=== PATIENT | female | born 1990 | race Caucasian/White ===

== ENCOUNTER → 2020-08-05 13:07 | Outpatient (CLI) | payer BC, SELFPAY ==
[2020-08-05 13:32] LABS: Basophils # 0.1 K/mm3 (0-0.2); Basophils % 1.4 % (0.1-2.0); Eosinophils # 0.6 K/mm3 (0.0-0.4); Eosinophils % 7.8 % (0.1-12.0); Hematocrit 38.4 % (37.0-47.0); Hemoglobin 11.8 g/dL (12.2-16.2); Lymphocytes # 2.2 K/mm3 (0.7-4.5); Lymphocytes % 30.8 % (10-50); Mean Corpuscular HGB Conc 30.8 g/dL (31.8-35.4); Mean Corpuscular Hemoglobin 28.7 pg (27.0-31.2); Mean Corpuscular Volume 93.3 fl (81-99); Mean Platelet Volume 8.4 fl (7.4-10.4); Monocytes # 0.3 K/mm3 (0.1-1.0); Monocytes % 4.5 % (1.7-9.3); Neutrophils % 55.5 % (37.0-80.0); Platelet Count 293 K/mm3 (142-424); Red Blood Count 4.12 M/mm3 (4.20-5.40); Red Cell Distribution Width 15.5 % (11.5-17.5); White Blood Count 7.2 K/mm3 (4.8-10.8)
[2020-08-05 13:58] LABS: Erythrocyte Sedimentation Rate 22 mm/hr (0-20)
[2020-08-05 14:10] LABS: Alanine Aminotransferase 26 U/L (12-78); Albumin Level 4.9 g/dl (3.5-5.0); Albumin/Globulin Ratio 1.5 (1.1-1.8); Alkaline Phosphatase 56 U/L (38-126); Anion Gap 14.1 mEq/L (5-15); Aspartate Amino Transferase 47 U/L (14-36); Bilirubin,Total 0.5 mg/dl (0.2-1.3); Blood Urea Nitrogen 11 mg/dl (7-17); Calcium 9.7 mg/dl (8.4-10.2); Carbon Dioxide 26 mmol/L (22.0-30.0); Chloride 103 mmol/L (98-107); Estimated Glomerular Filt Rate 52 ml/min (>60); GFR (African American) 63 ML/MIN (>60); Globulin 3.2 g/dL (1.3-3.2); Glucose 97 mg/dl (74-100); Potassium 4.1 mmoL/L (3.5-5.1); Sodium 139 mmol/L (136-145); Total Protein,Serum 8.1 g/dl (6.3-8.2)
[2020-08-05 14:20] LABS: Free T4 (Free Thyroxine) 0.07 ng/dl (0.78-2.19)
[2020-08-05 14:26] LABS: 25-OH Vitamin D, Total 19.4 ng/mL (30-100)
[2020-08-05 14:58] LABS: Vitamin B12 355 pg/mL (239-931)
== END ==
PROVIDERS: Visit Provider Nurse Practitioner Family
DX: E03.9 Hypothyroidism, unspecified (principal); R51.9 Headache, unspecified; M79.10 Myalgia, unspecified site
CPT/HCPCS: 36415; 80053; 82306; 82607; 84439; 84443; 85025; 85651

== ENCOUNTER → 2021-03-13 17:15 | Outpatient (CLI) | payer BC, SELFPAY ==
[2021-03-13 18:00] LABS: Basophils # 0.1 K/mm3 (0-0.2); Basophils % 1.3 % (0.1-2.0); Eosinophils # 0.6 K/mm3 (0.0-0.4); Eosinophils % 7.7 % (0.1-12.0); Hematocrit 37.2 % (37.0-47.0); Hemoglobin 11.8 g/dL (12.2-16.2); Lymphocytes # 2.3 K/mm3 (0.7-4.5); Lymphocytes % 30.6 % (10-50); Mean Corpuscular HGB Conc 31.8 g/dL (31.8-35.4); Mean Corpuscular Hemoglobin 28.5 pg (27.0-31.2); Mean Corpuscular Volume 89.5 fl (81-99); Monocytes # 0.4 K/mm3 (0.1-1.0); Monocytes % 5.2 % (1.7-9.3); Neutrophils # 4.1 K/mm3 (1.8-7.8); Neutrophils % 55.2 % (37.0-80.0); Platelet Count 302 K/mm3 (142-424); Red Blood Count 4.16 M/mm3 (4.20-5.40); Red Cell Distribution Width 15.6 % (11.5-17.5); White Blood Count 7.4 K/mm3 (4.8-10.8)
[2021-03-13 18:36] LABS: Alanine Aminotransferase 18 U/L (12-78); Albumin Level 5.1 g/dl (3.5-5.0); Albumin/Globulin Ratio 1.6 (1.1-1.8); Alkaline Phosphatase 50 U/L (38-126); Amylase 43 U/L (30-110); Anion Gap 16.5 mEq/L (5-15); Aspartate Amino Transferase 37 U/L (14-36); Bilirubin,Total 0.6 mg/dl (0.2-1.3); Blood Urea Nitrogen 6 mg/dl (7-17); Calcium 9.6 mg/dl (8.4-10.2); Carbon Dioxide 25 mmol/L (22.0-30.0); Chloride 103 mmol/L (98-107); Estimated Glomerular Filt Rate 64 ml/min (>60); GFR (African American) 78 ML/MIN (>60); Globulin 3.1 g/dL (1.3-3.2); Glucose 104 mg/dl (74-100); Lipase 71 U/L (23-300); Magnesium 1.9 mg/dl (1.6-2.3); Potassium 3.5 mmoL/L (3.5-5.1); Sodium 141 mmol/L (136-145); Total Protein,Serum 8.2 g/dl (6.3-8.2)
[2021-03-13 18:53] LABS: Free Thyroxine Index 0.2 ug/dL (5.93-13.13); T4 (Thyroxine) 1.1 ug/dl (5.53-11.0); Triiodothryronine (T3) Uptake 20 % (23.5-40.5)
[2021-03-15 12:11] LABS: Hep A Ab, IgM Negative (Negative); Hepatitis B Core Antibody IgM Negative (Negative); Hepatitis B Surface Antigen Negative (Negative); Hepatitis C Antibody <0.1 s/co ratio (0.0-0.9)
[2021-03-15 15:33] LABS: Deamidated Gliadin Abs, IgA 10 units (0-19); Deamidated Gliadin Abs, IgG 9 units (0-19)
== END ==
PROVIDERS: Visit Provider Internal Medicine Adolescent Medicine
DX: R10.84 Generalized abdominal pain (principal); E03.9 Hypothyroidism, unspecified
CPT/HCPCS: 36415; 80053; 80074; 82150; 83516; 83690; 83735; 84436; 84443; 84479; 85025

== ENCOUNTER → 2021-05-24 12:36 | Outpatient (CLI) | payer BC, SELFPAY | PROVIDERS: Visit Provider Surgery | DX: Z01.812 Encounter for preprocedural laboratory examination (principal); Z11.52 Encounter for screening for COVID-19; Z13.810 Encounter for screening for upper gastrointestinal disorder | CPT/HCPCS: C9803; U0003; U0005 ==

== ENCOUNTER 2021-05-25 06:50 | Day surgery (SDC) | payer BC, SELFPAY ==
[2021-05-25 07:10] VITALS: BMI 34.4
[2021-05-25 07:22] LABS: Urine Pregnancy, HCG Qual. Negative (Negative)
[2021-05-25 07:23] VITALS: BP 111/84; PULSE 64; RESP 18; TEMP 36.7; O2SAT 98
[2021-05-25 07:47] VITALS: O2SAT 97
[2021-05-25 08:12] VITALS: BP 96/59; PULSE 74; RESP 18; TEMP 36.3; O2SAT 95
--- NOTE | 2021-05-25 08:12 | P.PCN_ITS ---
- Procedure: Date: 05/25/21 Patient Date of :: 1990 Procedure Performed:: Esophagogastroduodenoscopy with biopsy Indications:: Nausea/vomiting; dysphagia Performing Provider:: Dameon Deng MD Referring Provider:: Dr. Gomes Sedation:: Monitored anesthesia care Procedure:: After informed consent was obtained the patient was taken to the endoscopy suite. Sedation ensued after the patient was transferred to the left lateral decubitus position. Pulse, blood pressure, and oxygen saturation were monitored throughout the procedure. The endoscope was advanced beyond the duodenal bulb. Retroflexion within the gastric lumen was accomplished. The gastroscope was carefully removed and the patient was transferred to recovery in stable conditi on. Please see findings and specimens below for detail. Findings:: Mild to moderate spasticity of the esophagus No significant anatomic stricture Scattered distal esophageal/gastroesophageal junction polyps Specimens:: Antral biopsy Distal esophageal/gastroesophageal junction polyps Recommendations:: Follow-up pathology Likely barium swallow and possible UGI/SBFT in near future Consider gastric emptying scan Complications:: No immediate Estimated blood obtained (mL): 1
--- NOTE | 2021-05-25 08:14 | HMH.ANESCL ---
[facility] Anesthesia Checklist - Patient Identification Patient Identification: Arm Band - Structural Data Admitted From: Home Planned Operative Procedure/s: egd Consent for Planned Operative Procedure(s) Verified: Yes Verified Documents: Surgical Consent, History and Physical - NPO Status Verified Time NPO: 00:00 - Additional verifications Anesthesia Reactions: No - Airway Assessment C-Spine Mobility Assessed: Yes (mp2) TMJ Mobility Assessed: Yes Dentition: Good Dentition - Neurological Assessment Level of Consciousness: Awake, Alert - Anesthesia Plan Anesthesia Risk discussed: Yes Anesthesia Plan: Verified ASA Class: II Anesthesia Type: MAC [facility] History I have reviewed the patient's past medical history: Yes 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: Reports:: Cancer Denies:: Diabetes Mellitus Type 1, Diabetes Mellitus Type 2, MRSA, Seizures *Have you ever received a pneumonia vaccine?: No *Have you received a flu vaccine this season?: No Anesthesia experience/problems:: nac Amputation: No Fractures: No - *Social History Last grade of school completed: Some college Smoking Status: Never smoker Alcohol Intake: never Substance Use Type: denies use *Occupational Status:: unemployed Housing: house Household Members: spouse, children *Travel in the last 8 weeks: None Family Hx:: Cancer, Coronary Artery Disease, Hyperlipidemia, Hypertension
[2021-05-25 08:22] VITALS: BP 103/66; PULSE 68; RESP 18; TEMP 36.3; O2SAT 99
[2021-05-25 08:32] VITALS: BP 119/79; PULSE 58; RESP 18; TEMP 36.3; O2SAT 96
[2021-05-25 08:42] VITALS: BP 120/83; PULSE 53; RESP 18; TEMP 36.3; O2SAT 99
== END 2021-05-25 08:42 | disposition home or self-care (01) ==
LOC: OUTP 06:53
PROVIDERS: PCP Internal Medicine Adolescent Medicine; Visit Provider Surgery
PROC: 0DJ08ZZ Inspection of Upper Intestinal Tract, Via Natural or Artificial Opening Endoscopic (ICD-10-PCS; CPT 43235; principal; 2021-05-25 08:00)
DX: D13.0 Benign neoplasm of esophagus (principal); Z88.0 Allergy status to penicillin; Z88.8 Allergy status to other drugs, medicaments and biological substances; E07.9 Disorder of thyroid, unspecified; Z85.9 Personal history of malignant neoplasm, unspecified; Z80.9 Family history of malignant neoplasm, unspecified; Z82.49 Family history of ischemic heart disease and other diseases of the circulatory system; Z83.438 Family history of other disorder of lipoprotein metabolism and other lipidemia
CPT/HCPCS: 43239; 81025

== ENCOUNTER → 2021-05-30 11:09 | Outpatient (CLI) | payer BC, SELFPAY ==
[2021-05-30 11:12] LABS: MANUAL DIFFERENTIAL MANUAL DIFFERENTIAL (MANUAL DIFF)
[2021-05-30 11:40] LABS: Basophils # 0.1 K/mm3 (0-0.2); Eosinophils # 0.7 K/mm3 (0.0-0.4); Eosinophils % 8.2 % (0.1-12.0); Hematocrit 40.2 % (37.0-47.0); Hemoglobin 12.8 g/dL (12.2-16.2); Lymphocytes # 2.1 K/mm3 (0.7-4.5); Lymphocytes % 23.3 % (10-50); Mean Corpuscular HGB Conc 31.8 g/dL (31.8-35.4); Mean Corpuscular Hemoglobin 29.6 pg (27.0-31.2); Mean Corpuscular Volume 92.9 fl (81-99); Mean Platelet Volume 9.5 fl (7.4-10.4); Monocytes # 0.5 K/mm3 (0.1-1.0); Monocytes % 5.5 % (1.7-9.3); Neutrophils # 5.6 K/mm3 (1.8-7.8); Neutrophils % 62.1 % (37.0-80.0); Platelet Count 342 K/mm3 (142-424); Red Blood Count 4.33 M/mm3 (4.20-5.40); Red Cell Distribution Width 15.1 % (11.5-17.5)
[2021-05-30 14:09] LABS: Eosinophils % 9 % (0-3); Lymphocytes % 23 % (10-50); Monocytes % 6 % (2-9); Neutrophils % 62 % (42-76); Platelet Estimate Normal; RBC Morphology Normal; Total Cells Counted 100
== END ==
PROVIDERS: Visit Provider Surgery
DX: R11.10 Vomiting, unspecified (principal); R19.7 Diarrhea, unspecified
CPT/HCPCS: 36415; 85007; 85014; 85018; 85048; 85049

== ENCOUNTER → 2021-06-05 10:06 | Outpatient (CLI) | payer BC, SELFPAY ==
--- NOTE | 2021-06-05 10:09 | NM_ITS ---
PROCEDURE: NM GASTRIC EMPTYING STUDY CLINICAL INDICATION: vomitting COMPARISON: No exams were available for comparison FINDINGS: Dose: 0.51 mCi technetium sulfur colloid mixed in 2 aches, 2 toast and water. The 1/2 emptying time is 78 minutes which is within normal limits. Only 10 percent of the gastric contents was retained at 240 minutes. Images submitted show no evidence of gastroesophageal reflux. IMPRESSION: Normal gastric emptying Dictated by: Papa Watson MD 06/05/2021 16:34 Papa Watson MD in [place] 06/05/2021 16:34
== END ==
PROVIDERS: PCP Internal Medicine Adolescent Medicine; Visit Provider Surgery
DX: R11.10 Vomiting, unspecified (principal)
CPT/HCPCS: 78264; A9541

== ENCOUNTER → 2021-06-07 09:54 | Outpatient (CLI) | payer BC, SELFPAY ==
--- NOTE | 2021-06-07 09:54 | FL_ITS ---
PROCEDURE: FL UPPER GI SMALL BOWEL CLINICAL INDICATION: vomitting COMPARISON: No exams were available for comparison FINDINGS: Fluoroscopy time: 2.39 minutes. Stereo Equipment Installer exam demonstrates surgical clips in the right upper quadrant. There is some sclerosis of the right SI joint. There is a small hiatal hernia within non constricting Schatzki's ring. The esophagus, stomach, and duodenal bulb have an unremarkable appearance. No ulcer or mass is evident. The small bowel has an unremarkable appearance. No mass, mucosal abnormalities, or obstructing lesions are evident. Spot views of the terminal ileum are unremarkable. IMPRESSION: Small sliding hiatal hernia otherwise negative upper GI with small-bowel follow-through Mild sclerosis right SI joint Dictated by: Papa Watson MD 06/13/2021 10:31 Papa Watson MD in [place] 06/13/2021 10:31
== END ==
PROVIDERS: PCP Internal Medicine Adolescent Medicine; Visit Provider Surgery
DX: R11.10 Vomiting, unspecified (principal)
CPT/HCPCS: 74246; 74248

== ENCOUNTER → 2021-07-04 15:04 | Outpatient (CLI) | payer BC, SELFPAY | PROVIDERS: PCP Internal Medicine Adolescent Medicine; Visit Provider Nurse Practitioner | DX: U07.1 COVID-19 (principal) | CPT/HCPCS: C9803; U0003; U0005 ==

== ENCOUNTER 2022-07-18 18:06 | Emergency (ER) | payer OTHER, SELFPAY ==
[2022-07-18 19:55] VITALS: BP 138/89; PULSE 91; RESP 21; TEMP 36.9; O2SAT 100; BMI 31.1
--- NOTE | 2022-07-18 20:12 | EXP.UTC ---
Discharge Plan Disposition Patient Disposition: Home, Self-Care Condition: Good Prescriptions Prescriptions: New oseltamivir [Tamiflu] 75 mg capsule 75 mg PO BID 5 Days Qty: 10 0RF benzonatate 100 mg capsule 100 mg PO TID PRN (Reason: cough) Qty: 30 0RF ondansetron 4 mg tablet,disintegrating 4 mg PO Q8H PRN (Reason: nausea and vomiting) Qty: 10 0RF No Action levothyroxine 125 mcg tablet 125 mcg PO Referrals Follow up/Referrals: Jordon Gomes MD [Primary Care Provider] - See instructions Activity Restrictions/Add. Instructions Additional Instructions/Restrictions: Start Tamiflu today if you are going to take it. Discussed risk and possible benefits. if you can get it if not Over the counter Cold and flu medications may help with symptoms Lots of rest Increase Fluids water, Gatorade, powerade, pedialyte,if infant/toddler/child Alternate Tylenol and / or ibuprofen as discussed for fever, aches, chills Follow up IMMEDIATELY with your family doctor for new or worsening Symptoms OR no noticeable improvement over the next 48-72 hours, 911 for difficulty or breathing You or your child area contagious until no fever, aches, chills for 24 hours with medication for symptoms Help Prevent the spread of influenza: ?Wash your hands often. Use soap and water. Wash your hands after you use the bathroom, change a child's diapers, or sneeze. Wash your hands before you prepare or eat food. Use gel hand cleanser that has 60% alcohol, when soap and water are not available. Do not touch your eyes, nose, or mouth unless you have washed your hands first. Cover your mouth when you sneeze or cough. Cough into a tissue or the bend of your arm. If you use a tissue, throw it away immediately and wash your hands. Clean shared items with a germ-killing flue cleaner. Clean table surfaces, doorknobs, and light switches. Do not share towels, silverware, and dishes with people who are sick. Wash bed sheets, towels, silverware, and dishes with soap and water. Wear a mask over your mouth and nose if you are sick. The face mask may help protect others from becoming infected with the flu. Wear the mask when in common areas of your home or if you seek care with a healthcare provider. Stay away from others if you are sick. Stay at home until 24 hours after your fever and symptoms are gone. Clinical Impressions Clinical Impression: Influenza A Stand Alone Forms Stand Alone Forms: Work/School Release Instructions Patient Instructions: DI for Influenza -- Adult, Influenza Discharge ED Provider: Josselin Gardner [facility] General Stated complaint: fever,cough,body aches Mode of Arrival: Ambulatory Source of Information: Patient Limitations: No Limitations Time Seen by Provider: 07/18/22 20:12 Description of Symptoms (Recalled from Triage Doc. by RN): PATIENT C/O COUGH, FEVER, BODY ACHES, CHILLS AND VOMITING X 2 DAYS HEENT Symptoms (Recalled from RN notes): No Resp Symptoms (Recalled from RN notes): Yes Skin Symptoms (Recalled from RN notes): No MS Symptoms (Recalled from RN notes): No Functional Status (Recalled from RN notes): WNL History of Present Illness Provider Complaint: Patient states that she was around someone over the weekend with the flu States that for the last couple of days she has been having low grade fever, chills, body aches cough and N/V States that her kids area having similar symptoms so they came in to get checked Related Data Home Medications Medication Instructions Recorded Confirmed levothyroxine 125 mcg tablet 125 mcg PO 06/14/21 06/14/21 Previous Rx's Medication Instructions Recorded benzonatate 100 mg capsule 100 mg PO TID PRN cough #30 caps 07/18/22 ondansetron 4 mg disintegrating 4 mg PO Q8H PRN nausea and 07/18/22 tablet vomiting #1
[2022-07-18 20:21] VITALS: BP 138/89; PULSE 91; RESP 21; TEMP 36.9; O2SAT 100
[2022-07-18 20:28] LABS: UTC Influenza A Antigen Positive (Negative); UTC Influenza B Antigen Negative (Negative)
== END 2022-07-18 20:48 | disposition home or self-care (01) ==
PROVIDERS: Emergency Provider Nurse Practitioner; PCP Internal Medicine Adolescent Medicine
DX: J10.1 Influenza due to other identified influenza virus with other respiratory manifestations (principal)
CPT/HCPCS: 87804; 99212; G0463

== ENCOUNTER 2023-04-01 11:33 | Emergency (ER) | payer OTHER, SELFPAY ==
[2023-04-01 11:40] VITALS: BP 160/94; PULSE 67; RESP 20; TEMP 36.6; O2SAT 97; BMI 29.3
--- NOTE | 2023-04-01 12:01 | EXP.UTC ---
Discharge Plan Disposition Patient Disposition: Still a Patient Condition: Good Prescriptions Prescriptions: New doxycycline hyclate 100 mg capsule 100 mg PO BID 7 Days Qty: 14 0RF mupirocin 2 % ointment 1 applic topical TID 10 Days Qty: 22 0RF Rx Instructions: apply to bites as prescribed No Action levothyroxine 175 mcg tablet 175 mcg PO DAILY metoclopramide HCl 5 mg tablet 5 mg PO DAILY Patient Comments: TAKE 1 TABLET BY MOUTH FOUR TIMES A DAY (BEFORE MEALS AND AT BEDTIME) pantoprazole 40 mg tablet,delayed release (DR/EC) 40 mg PO DAILY dicyclomine 10 mg capsule 10 mg PO DAILY Referrals Follow up/Referrals: Jordon Gomes MD [Primary Care Provider] - See instructions Activity Restrictions/Add. Instructions Additional Instructions/Restrictions: Make sure to seperate dose of Doxycyclin with your Pantoprazole by a couple hours Use topical medicaiton as prescribed Follow up with your Family Doctor if no improvement or any worsening of symptoms Over the counter Motrin may help with discomfort Clinical Impressions Clinical Impression: Skin problem Instructions Patient Instructions: Doxycycline, Mupirocin Discharge ED Provider: Josselin Gardner [facility] General Stated complaint: left leg spider bites Mode of Arrival: Ambulatory Source of Information: Patient Limitations: No Limitations Time Seen by Provider: 04/01/23 12:01 Description of Symptoms (Recalled from Triage Doc. by RN): PATIENT C/O POSSIBLE SPIDER BITES TO LEFT LEG THAT HAPPENED ON SATURDAY. SHE STATES THE BITES BURN AND ITCHY. SHE ALSO REPORTS WEAKNESS AND BODY ACHES HEENT Symptoms (Recalled from RN notes): No Resp Symptoms (Recalled from RN notes): No Skin Symptoms (Recalled from RN notes): Yes MS Symptoms (Recalled from RN notes): No Functional Status (Recalled from RN notes): WNL History of Present Illness Provider Complaint: Patient states that she was bitten several times by spiders on Saturday and has several red, sore itchy areas on her left leg States that she is not sure if it is associated with anything but she has also had body aches and chills today States that areas are sore and itchy at times and hurts when she touches them and today they was looking red Related Data Home Medications Medication Instructions Recorded Confirmed dicyclomine 10 mg capsule 10 mg PO DAILY GASTROPARESIS 04/01/23 04/01/23 levothyroxine 175 mcg tablet 175 mcg PO DAILY Supplement 04/01/23 04/01/23 metoclopramide HCl 5 mg tablet 5 mg PO DAILY GASTROPARESIS 04/01/23 04/01/23 pantoprazole 40 mg tablet,delayed 40 mg PO DAILY GASTROPARESIS 04/01/23 04/01/23 release Previous Rx's Medication Instructions Recorded doxycycline hyclate 100 mg capsule 100 mg PO BID 7 days #14 caps 04/01/23 mupirocin 2 % topical ointment 1 applic topical TID 10 days #22 04/01/23 grams Allergies Allergy/AdvReac Type Severity Reaction Status Date / Time cortisone [CORTISONE] Allergy Mild Verified 06/14/21 10:04 Penicillins [PENICILLINS] Allergy Mild Verified 06/14/21 10:04 Worker's Comp Is this a Worker's Comp case?: No [facility] Disclaimer: The information contained in this section may have been updated after the patient was seen, as this information can be updated by other users. 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 (Updated 04/01/23 @ 12:13 by Josselin Gardner APRN) Thyroid disease Social History (Updated 07/18/22 @ 20:07 by Alix Fuentes RN) Smoking Status: Never smoker alcohol intake: never substance use type: denies use current occupational status: unemployed Travel in the last 8 weeks: None household members: spouse and children housing: house current occupational exposures/hazards: No ROS Obtained: Yes All systems reviewed & no additional complaints except as documented and Yes Systems reviewed as appropriate & no additional complaints except as documented Constitutional Constitutional: Reports sy
[2023-04-01 12:16] VITALS: BP 160/94; PULSE 67; RESP 20; TEMP 36.6; O2SAT 97
== END 2023-04-01 12:18 | disposition still patient (30) ==
PROVIDERS: Emergency Provider Nurse Practitioner; PCP Internal Medicine Adolescent Medicine
DX: T63.301A Toxic effect of unspecified spider venom, accidental (unintentional), initial encounter (principal); L98.9 Disorder of the skin and subcutaneous tissue, unspecified
CPT/HCPCS: 99212; 99214; G0463

== ENCOUNTER 2023-09-10 10:31 | Emergency (ER) | payer OTHER, SELFPAY ==
[2023-09-10 10:40] VITALS: BP 136/91; PULSE 78; RESP 18; TEMP 36.7; O2SAT 97; BMI 34.0
--- NOTE | 2023-09-10 10:47 | EXP.UTC ---
Discharge Plan Disposition Patient Disposition: Home, Self-Care Condition: Good Prescriptions Prescriptions: New azithromycin [Zithromax] 250 mg tablet 250 mg PO UD DOSE PK Qty: 6 0RF Rx Instructions: Take two (2) tablets today, then one (1) tablet days #2 thru #5 benzonatate [benzonatate] 100 mg capsule 100 mg PO TIDP PRN (Reason: Cough) Qty: 30 0RF No Action levothyroxine 175 mcg tablet 175 mcg PO DAILY metoclopramide HCl 5 mg tablet 5 mg PO DAILY Patient Comments: TAKE 1 TABLET BY MOUTH FOUR TIMES A DAY (BEFORE MEALS AND AT BEDTIME) pantoprazole 40 mg tablet,delayed release (DR/EC) 40 mg PO DAILY Referrals Follow up/Referrals: Jordon Gomes MD [Primary Care Provider] - See instructions Activity Restrictions/Add. Instructions Additional Instructions/Restrictions: Drink plenty of fluids. Take tylenol or ibuprofen for pain or fever. Take the medications as directed. Follow up with your regular doctor. GO TO THE ER FOR ANY WORSENING SYMPTOMS Clinical Impressions Clinical Impression: Acute bronchitis, Acute viral syndrome Instructions Patient Instructions: DI for Acute Bronchitis Discharge ED Provider: Rainer Shelton [facility] General Stated complaint: cough, sore throat Time Seen by Provider: 09/10/23 10:47 History of Present Illness Provider Complaint: She states that for the past 2 days she has had sore throat and a croupy productive cough. Related Data Home Medications Medication Instructions Recorded Confirmed levothyroxine 175 mcg tablet 175 mcg PO DAILY Supplement 04/01/23 09/10/23 metoclopramide HCl 5 mg tablet 5 mg PO DAILY GASTROPARESIS 04/01/23 09/10/23 pantoprazole 40 mg tablet,delayed 40 mg PO DAILY GASTROPARESIS 04/01/23 09/10/23 release Previous Rx's Medication Instructions Recorded azithromycin 250 mg tablet 250 mg PO UD DOSE PK #6 tabs 09/10/23 (Zithromax) benzonatate 100 mg capsule 100 mg PO TIDP PRN Cough #30 caps 09/10/23 Allergies Allergy/AdvReac Type Severity Reaction Status Date / Time cortisone [CORTISONE] Allergy Mild Verified 09/10/23 10:53 Penicillins [PENICILLINS] Allergy Mild Verified 09/10/23 10:53 [facility] Disclaimer: The information contained in this section may have been updated after the patient was seen, as this information can be updated by other users. 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 (Updated 09/10/23 @ 11:07 by Rainer Shelton APRN) Thyroid disease Social History Smoking Status: Never smoker alcohol intake: never substance use type: denies use current occupational status: unemployed Travel in the last 8 weeks: None household members: spouse and children housing: house current occupational exposures/hazards: No ROS Obtained: Yes All systems reviewed & no additional complaints except as documented Constitutional Constitutional: Reports poor appetite Eyes Eyes: Reports system reviewed and no additional complaints, except as documented ENT Ears, Nose, Mouth, and Throat: Reports as per HPI Cardiovascular Cardiovascular: Reports system reviewed and no additional complaints, except as documented and Denies chest pain Respiratory Respiratory: Denies shortness of breath, Reports chest congestion, Reports cough, Denies stridor and Denies wheezing Gastrointestinal Gastrointestingal: Reports system reviewed and no additional complaints, except as documented; Denies abdominal pain, diarrhea or vomiting Musculoskeletal Musculoskeletal: Reports system reviewed and no additional complaints, except as documented and Denies arthralgias Integumentary/Breasts Skin/Breast: Reports system reviewed and no additional complaints, except as documented, Denies rash and Denies wounds Neurologic Neurologic: Denies paresthesias Allergic/Immunologic Allergic/Immunologic: Denies wheezing Physical Exam General General appearance: alert and in no apparent distress Eye Eye exam: Present normal appearance, PERRL and EOMI ENT ENT exam: Present mucous membranes moist and normal external ear exam Expanded ENT Exam External ear exam: Present normal external inspection TM/Canal exam: Bilateral TM: erythema and bulging Nose exam: Absent sinus tenderness Nasal speculum exam: Bilateral: normal Mouth exam: Present normal external inspection; Absent drooling Teeth exam: Present normal inspection Throat exam: Present tonsillar erythema and tonsillomegaly Neck Neck exam: Present normal inspection, full ROM and trachea midline; Absent tenderness, lymphadenopathy or thyromegaly Chest Chest inspection: Present normal inspection and symmetric chest wall rise; Absent tenderness or rash Respiratory Respiratory exam: Present normal lung sounds bilaterally; Absent respiratory distress, wheezes, stridor or accessory muscle use Cardiovascular Cardiovascular exam: Present regular rate, normal rhythm and normal heart sounds Abdominal Exam Abdominal exam: Present soft; Absent distention, tenderness, guarding, rebound or rigidity Extremities Exam Extremities exam: Present normal inspection, full ROM and normal capillary refill; Absent tenderness or calf tenderness Back Exam Back exam: Present normal inspection and full ROM; Absent tenderness Neurological Exam Neurological exam: Present alert and oriented X3 Psychiatric Psychiatric exam: Present normal affect and normal mood Skin Skin exam: Present warm, dry, intact and normal color Lymphatic Lymphatic Findings: no adenopathy Medical Decision Making Medical Records Medical records reviewed: No I reviewed the patient's medical records. Jeremiah Inquiry Pt receiving controlled substance: No
[2023-09-10 11:11] VITALS: BP 136/91; PULSE 78; RESP 18; TEMP 36.7; O2SAT 97
== END 2023-09-10 11:11 | disposition home or self-care (01) ==
PROVIDERS: Emergency Provider Nurse Practitioner Family; PCP Internal Medicine Adolescent Medicine
DX: J20.9 Acute bronchitis, unspecified (principal); R05.8 Other specified cough; R07.0 Pain in throat; R09.89 Other specified symptoms and signs involving the circulatory and respiratory systems; E03.9 Hypothyroidism, unspecified
CPT/HCPCS: 99212; 99214; G0463

== ENCOUNTER 2024-07-26 09:45 | Emergency (ER) | payer OTHER, SELFPAY ==
[2024-07-26 10:55] VITALS: BP 131/91; PULSE 101; RESP 21; TEMP 36.9; O2SAT 98; BMI 38.5
[2024-07-26 11:09] LABS: UTC Strep Screen (Rapid) Negative (Negative)
[2024-07-26 11:10] LABS: UTC Influenza A Antigen Negative (Negative); UTC Influenza B Antigen Negative (Negative)
--- NOTE | 2024-07-26 11:14 | EXP.UTC ---
Discharge Plan Disposition Patient Disposition: Home, Self-Care Condition: Good Prescriptions Prescriptions: New azithromycin 250 mg tablet 250 mg PO DIRECTED Qty: 6 0RF Rx Instructions: Take two (2) tablets on day #1, then one (1) tablet day #2 thru #5 No Action levothyroxine 175 mcg tablet 175 mcg PO DAILY pantoprazole 40 mg tablet,delayed release (DR/EC) 40 mg PO DAILY Referrals Follow up/Referrals: Jordon Gomes MD [Primary Care Provider] - See instructions Activity Restrictions/Add. Instructions Additional Instructions/Restrictions: Start antibiotics today be sure to take it as ordered with the full length of time although you should start feeling better in 24-48 hours. Change toothbrush and toothpaste 24-48 hours after starting antibiotics Tylenol or Motrin as needed for fever or pain Encourage fluids, water, Gatorade, Powerade, try cold fluids, popsicles, ice cream will make it feel better You are contagious for 24 hours. Avoid kissing anyone, no eating or drinking after anyone. You are contagious. Follow-up the ER for new or worsening symptoms or no noticeable improvement over the next 24-48 hours. Follow-up with PCP this week. Clinical Impressions Clinical Impression: Strep throat Instructions Patient Instructions: DI for Strep Throat Print Language Print Language: Liberian Discharge ED Provider: Vasu ([facility])Bethany [facility] HPI General Stated complaint: sore throat, fever, chills Mode of Arrival: Ambulatory Source of Information: Patient Limitations: No Limitations Time Seen by Provider: 07/26/24 11:04 Description of Symptoms (Recalled from Triage Doc. by RN): PATIENT C/O SORE THROAT, DRAINAGE, FEVER, BODY ACHES AND CHILLS X 3 DAYS HEENT Symptoms (Recalled from RN notes): Yes Resp Symptoms (Recalled from RN notes): No Skin Symptoms (Recalled from RN notes): No MS Symptoms (Recalled from RN notes): No Functional Status (Recalled from RN notes): WNL History of Present Illness Provider Complaint: 34-year-old female presents for complaints of sore throat, drainage, fever, body aches and chills for 3 days. Related Data Home Medications ?Medication ?Instructions ?Recorded ?Confirmed levothyroxine 175 mcg tablet 175 mcg PO DAILY Supplement 04/01/23 07/26/24 pantoprazole 40 mg tablet,delayed 40 mg PO DAILY GASTROPARESIS 04/01/23 07/26/24 release Previous Rx's ?Medication ?Instructions ?Recorded azithromycin 250 mg tablet 250 mg PO DIRECTED #6 tabs 07/26/24 Allergies Allergy/AdvReac Type Severity Reaction Status Date / Time cortisone (CORTISONE) Allergy Mild Unknown Verified 07/26/24 11:11 allergy reaction Penicillins (PENICILLINS) Allergy Mild Unknown Verified 07/26/24 11:11 allergy reaction ibuprofen (From Advil) Allergy Unknown Verified 07/26/24 11:11 allergy reaction Worker's Comp Is this a Worker's Comp case?: No [facility] Disclaimer: The information contained in this section may have been updated after the patient was seen, as this information can be updated by other users. 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 , [employer]) Thyroid disease Social History , [employer] AG[employer]) Smoking Status: Never smoker alcohol intake: never substance use type: denies use current occupational status: unemployed Travel in the last 8 weeks: None household members: spouse and children housing: house current occupational exposures/hazards: No ROS Obtained: Yes Systems reviewed as appropriate & no additional complaints except as documented Physical Exam General General appearance: alert and in no apparent distress Eye Eye exam: Present normal appearance ENT ENT exam: Present mucous membranes moist and TM's normal bilaterally Expanded ENT Exam Throat exam: Present tonsillar erythema, tonsillomegaly and tonsillar exudate Respiratory Respiratory exam: Present normal lung sounds bilaterally Cardiovascular Cardiovascular exam: Present regular rate and normal rhythm Neurological Exam Neurological exam: Present alert and oriented X3 Psychiatric Psychiatric exam: Present normal affect Skin Skin exam: Present warm and intact Lymphatic Lymphatic Findings: no adenopathy Medical Decision Making Medical Records Medical records reviewed: Yes I reviewed the patient's medical records. Screening: Per USPSTF and CDC recommendations, given the prevalence of disease in our region, it is our hospital?s policy to screen for HIV and viral Hepatitis for all patients aged 18 and over and those with ongoing risk factors. Jeremiah Inquiry Pt receiving controlled substance: No Vital Signs: 07/26/24 10:55 Temperature 98.5 F Temperature Source Oral Pulse Rate [Left Brachial] 101 H Respiratory Rate 21 Blood Pressure [Left Arm] 131/91 H Blood Pressure Mean [Left Arm] 104 Blood Pressure Source [Left Arm] Automatic Cuff Blood Pressure Position [Left Arm] Sitting 02 Sat by Pulse Oximetry 98 Oxygen Delivery Method Room Air Lab Data Lab results reviewed: Yes I reviewed the patient's lab results. Lab Results 07/26/24 10:55: Influenza Type A Ag Negative, Influenza Type B Ag Negative, Strep Scn Rapid Clinic Negative Orders (Tests/Meds): ORDERS Category Date Time Status Strep Screen Confirmation Stat Micro 07/26/24 10:55 Received
[2024-07-26 11:18] VITALS: BP 131/91; PULSE 101; RESP 21; TEMP 36.9; O2SAT 98
== END 2024-07-26 11:21 | disposition home or self-care (01) ==
PROVIDERS: Emergency Provider Nurse Practitioner Family; PCP Internal Medicine Adolescent Medicine
DX: J02.0 Streptococcal pharyngitis (principal)
CPT/HCPCS: 87804; 87880; 99213; G0381

== ENCOUNTER 2024-10-22 04:07 | Emergency (ER) | payer OTHER, SELFPAY ==
--- NOTE | 2024-10-22 04:11 | HMH.EDGENADL ---
Discharge Plan Disposition Patient Disposition: Home, Self-Care Prescriptions Prescriptions: New methocarbamol 500 mg tablet 500 mg PO Q6H PRN (Reason: pain) Qty: 30 0RF No Action levothyroxine 175 mcg tablet 175 mcg PO DAILY pantoprazole 40 mg tablet,delayed release (DR/EC) 40 mg PO DAILY azithromycin 250 mg tablet 250 mg PO DIRECTED Qty: 6 0RF Rx Instructions: Take two (2) tablets on day #1, then one (1) tablet day #2 thru #5 Referrals Follow up/Referrals: Jordon Gomes MD [Primary Care Provider] - See instructions Activity Restrictions/Add. Instructions Additional Instructions/Restrictions: Please follow-up with your primary care provider. Please return to the emergency department if you develop any new or worsening symptoms or become concerned for your health. Clinical Impressions Clinical Impression: Acute foot pain Qualifiers: Laterality: right Qualified Code(s): M79.671 - Pain in right foot Print Language Print Language: Mohawk Discharge ED Provider: Boogie Campos General Adult HPI General Chief complaint: Extremity Problem,Nontraumatic Stated complaint: R foot injury Time Seen by Provider: 10/22/24 04:10 History of Present Illness HPI narrative: 34-year-old female without significant past medical history presents for right foot pain. 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 She woke up 2 days ago with pain in her right foot. Primarily on the lateral side of the foot, now wrapping around under the heel. Pain worse with movement. She did not remember any significant trauma. No redness or fever or systemic symptoms. Related Data Home Medications ?Medication ?Instructions ?Recorded ?Confirmed levothyroxine 175 mcg tablet 175 mcg PO DAILY Supplement 04/01/23 07/26/24 pantoprazole 40 mg tablet,delayed 40 mg PO DAILY GASTROPARESIS 04/01/23 07/26/24 release Previous Rx's ?Medication ?Instructions ?Recorded azithromycin 250 mg tablet 250 mg PO DIRECTED #6 tabs 07/26/24 methocarbamol 500 mg tablet 500 mg PO Q6H PRN pain #30 tabs 10/22/24 Allergies Allergy/AdvReac Type Severity Reaction Status Date / Time cortisone (CORTISONE) Allergy Mild Unknown Verified 07/26/24 11:11 allergy reaction Penicillins (PENICILLINS) Allergy Mild Unknown Verified 07/26/24 11:11 allergy reaction ibuprofen (From Advil) Allergy Unknown Verified 07/26/24 11:11 allergy reaction PFSH PFSH Disclaimer: The information contained in this section may have been updated after the patient was seen, as this information can be updated by other users. 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) Smoking Status: Unknown if ever smoked alcohol intake: never substance use type: denies use current occupational status: unemployed Travel in the last 8 weeks: None household members: spouse and children housing: house current occupational exposures/hazards: No Have you lived/traveled outside US in past 30 days?: No Contact w/someone who lives/traveled outside US past 30 days?: No Exposure to someone with infectious disease in past 14 days?: No Do you have a fever (greater than 100.4 F or 38 C)?: No Have you tested positive for COVID-19: No Exposed to someone with COVID-19 in past 14 days?: No Do you have a sore throat?: No Do you have a cough?: No Do you have any weakness?: No Do you have any diarrhea?: No Are you experiencing any unusual bleeding?: No Do you have any muscle aches/pain?: No Do you have any abdominal pain?: No Are you experiencing loss of taste or smell?: No Other 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 Have you received the Flu Vaccine for this season: No Have you received the Pneumonia Vaccine: No ROS Obtained: Yes All systems reviewed & no additional complaints except as documented Physical Exam General General appearance: alert and in no apparent distress Head Head exam: atraumatic and normocephalic Eye Eye exam: Present normal appearance, PERRL and EOMI ENT ENT exam: Present normal oropharynx and normal external ear exam Neck Neck exam: Present normal inspection and full ROM Chest Chest inspection: Present normal inspection and symmetric chest wall rise; Absent tenderness Respiratory Respiratory exam: Present normal lung sounds bilaterally; Absent respiratory distress Cardiovascular Cardiovascular exam: Present regular rate and normal rhythm Abdominal Exam Abdominal exam: Present soft; Absent distention, tenderness or guarding Extremities Exam Extremities exam: Present other (Tenderness to the lateral midfoot, heel, no significant erythema or swelling) Back Exam Back exam: Present normal inspection; Absent tenderness Neurological Exam Neurological exam: Present alert and oriented X3; Absent motor sensory deficit Psychiatric Psychiatric exam: Present normal affect and normal mood Skin Skin exam: Present warm, dry and normal color Lymphatic Lymphatic Findings: no adenopathy Medical Decision Making Medical Records Medical records reviewed: Yes I reviewed the patient's medical records. Screening: Per USPSTF and CDC recommendations, given the prevalence of disease in our region, it is our hospital?s policy to screen for HIV and viral Hepatitis for all patients aged 18 and over and those with ongoing risk factors. Jeremiah Inquiry Pt receiving controlled substance: No Jeremiah was queried for this patient: No Vital Signs: 10/22/24 04:21 10/22/24 05:13 Temperature 97.7 F 98 F Temperature Source Oral Pulse Rate 68 Pulse Rate [Left] 80 Respiratory Rate 18 16 Blood Pressure 134/68 Blood Pressure [Right Arm] 152/97 H Blood Pressure Mean [Right Arm] 115 Blood Pressure Position Sitting 02 Sat by Pulse Oximetry 98 Oxygen Delivery Method Room Air Room Air Lab Data Lab results reviewed: Yes I reviewed the patient's lab results. Orders (Tests/Meds): ED MEDICATIONS Discontinued Medications Generic Name Dose Route Start Last Admin Trade Name Freq PRN Reason Stop Dose Admin Acetaminophen 1,000 mg 10/22/24 04:20 10/22/24 04:26 Acetaminophen 500mg Tab PO 10/22/24 04:21 1,000 mg ONCE ONE Administration Methocarbamol 500 mg 10/22/24 04:20 10/22/24 04:25 Methocarbamol 500mg Tablet PO 10/22/24 04:21 500 mg ONCE ONE Administration Oxycodone HCl 5 mg 10/22/24 04:20 10/22/24 04:26 Oxycodone 5mg Immediate Release Tablet PO 10/22/24 04:21 5 mg ONCE ONE Administration ORDERS Category Date Time Status Ankle XR -Right minimum 3 Views [XR ankle RT min 3V] Exams 10/22/24 04:20 Completed Stat XR foot RT min 3V Stat Exams 10/22/24 04:20 Completed Medical Decision Narrative: 34-year-old female without significant past medical history presents for apparently atraumatic foot pain. History was obtained via interactive discussion with patient. On arrival, patient is [afebrile, hemodynamically stable, satting appropriately, alert, oriented x4, GCS 15], moving all extremities spontaneously. Full physical exam performed and significant for tenderness to the lateral midfoot and calcaneus. Differential includes but is not limited to sprain, fracture, dislocation, gout, patient has no history of gout, nor she have any pain or swelling at the first metatarsal phalangeal joint. Patient was given Tylenol, Robaxin, oxycodone for symptomatic management and correction of underlying abnormalities. Workup initiated including radiographs of the right foot and ankle. On re-evaluation, patient [remains afebrile, HD stable.] Imaging independently interpreted by me and significant for no evidence of fracture, dislocation, or osseous abnormality. See radiology read for full review of final results. CT imaging of the foot was considered, but deemed unnecessary due to no history of trauma to suggest a ligamentous injury such as Lisfranc injury. Given patient history, exam and workup, patient's presentation most likely represents possible ankle sprain or bone bruising. No obvious pathology noted on exam or workup. Interactive discussion was had with patient regarding her presentation and workup. She was discharged in stable condition return precautions and instructions regarding symptomatic care. Procedures Risk/Benefits of Procedure(s) Were Explained: Yes Critical Care Critical Care Time Critical Care Time: No
--- NOTE | 2024-10-22 04:20 | XR_ITS ---
PROCEDURE INFORMATION: Exam: XR Right Ankle Exam date and time: 10/22/2024 4:25 AM Age: 34 years old Clinical indication: Pain; Ankle; Right; Additional info: Ankle pain TECHNIQUE: Imaging protocol: Radiologic exam of the right ankle. Views: 3 or more views. COMPARISON: No relevant prior studies available. FINDINGS: Bones/joints: Normal. Soft tissues: Normal. IMPRESSION: No acute findings.
--- NOTE | 2024-10-22 04:20 | XR_ITS ---
PROCEDURE INFORMATION: Exam: XR Right Foot Exam date and time: 10/22/2024 4:27 AM Age: 34 years old Clinical indication: Pain; Foot; Right; Additional info: Lateral and posterior foot pain TECHNIQUE: Imaging protocol: Radiologic exam of the right foot. Views: 3 or more views. COMPARISON: CR XR ANKLE RT MIN 3V 10/22/2024 4:25 AM FINDINGS: Bones/joints: Normal. Soft tissues: Normal. IMPRESSION: No acute findings.
[2024-10-22 04:21] VITALS: BP 152/97; PULSE 80; RESP 18; TEMP 36.5; O2SAT 98; BMI 36.6
[2024-10-22] MEDS: METHOCARBAMOL 500MG TABLET 500 MG PO (04:25)
[2024-10-22] MEDS: ACETAMINOPHEN 500MG TAB 1000 MG PO (04:26)
[2024-10-22] MEDS: OXYCODONE 5MG IMMEDIATE RELEASE TABLET 5 MG PO (04:26)
--- NOTE | 2024-10-22 04:42 | PC.NURSE ---
pt returned to room from radiology without incident.
--- NOTE | 2024-10-22 05:03 | PC.NURSE ---
provider at the bedside updating pt on POC
[2024-10-22 05:13] VITALS: BP 134/68; PULSE 68; RESP 16; TEMP 36.6; O2SAT 100
== END 2024-10-22 05:14 | disposition home or self-care (01) ==
PROVIDERS: Emergency Provider Emergency Medicine; PCP Internal Medicine Adolescent Medicine
DX: M79.671 Pain in right foot (principal)
CPT/HCPCS: 73610; 73630; 99283

== ENCOUNTER 2024-12-29 11:32 | Outpatient (CLI) | payer OTHER, SELFPAY | END 2024-12-29 23:59 | disposition home or self-care (01) | LOC: LAB 11:33 | PROVIDERS: PCP Nurse Practitioner Family; Visit Provider Nurse Practitioner Family | DX: R14.0 Abdominal distension (gaseous) (principal) | CPT/HCPCS: 82656 ==

== ENCOUNTER 2025-03-04 12:32 | Day surgery (SDC) | payer OTHER, SELFPAY ==
[2025-03-02 15:19] VITALS: BMI 38.0
[2025-03-04 13:02] VITALS: BP 137/94; PULSE 76; RESP 18; TEMP 35.6; O2SAT 98
[2025-03-04 13:08] LABS: Urine Pregnancy, HCG Qual. Negative (Negative)
--- NOTE | 2025-03-04 13:49 | EXP.HP ---
History of Present Illness *Admission Date: 03/04/25 *Reason for visit:: nausea, vomiting, abdominal pain and bloating *History of present illness: Mrs. Crockett is a 34-year-old female who is here for diagnostic upper endoscopy secondary to a lot of heartburn, reflux, nausea, vomiting and abdominal pain. She also has had a lot of belching, bloating and gassiness.. The examination is deemed medically necessary for diagnostic EGD. The patient has been seen, interviewed and examined prior to the procedure by both myself and the anesthesia provider. [facility] Disclaimer: The information contained in this section may have been updated after the patient was seen, as this information can be updated by other users. 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 (Updated 03/04/25 @ 14:04 by Ruddy Houston II, MD) delivery delivered Cholecystectomy planned PCOS (polycystic ovarian syndrome) Gastroparesis Thyroid disease Surgical History H/O thyroidectomy History of surgery on arm Family History Other No significant family history Social History Smoking Status: Never smoker alcohol intake: never substance use type: denies use current occupational status: unemployed Travel in the last 8 weeks?: None household members: spouse and children housing: house current occupational exposures/hazards: No Have you lived/traveled outside US in past 30 days?: No Contact w/someone who lives/traveled outside US past 30 days?: No Exposure to someone with infectious disease in past 14 days?: No Do you have a fever (greater than 100.4 F or 38 C)?: No Have you tested positive for COVID-19?: No Exposed to someone with COVID-19 in past 14 days?: No Do you have a sore throat?: No Do you have a cough?: No Do you have any weakness?: No Do you have any diarrhea?: No Are you experiencing any unusual bleeding?: No Do you have any muscle aches/pain?: No Do you have any abdominal pain?: No Are you experiencing loss of taste or smell?: No Other 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 Have you received the Flu Vaccine for this season: No Have you received the Pneumonia Vaccine: No Review of Systems Review of Systems Review of systems (narrative): Negative *Cardiovascular Comments: Negative *Gastrointestinal Comments: Negative *Genitourinary Comments: Negative *Musculoskeletal Comments: Negative *Neurologic Comments: Negative Meds Home Medications and Allergies Home Medications ?Medication ?Instructions ?Recorded ?Confirmed ?Type pantoprazole 40 mg tablet,delayed 40 mg PO TID GASTROPARESIS 04/01/23 03/04/25 History release bupropion HCl 150 mg 24 hr tablet, 150 mg PO DAILY 12/29/24 03/04/25 History extended release levothyroxine 200 mcg capsule 200 mcg PO DAILY 12/29/24 03/04/25 History metformin 500 mg tablet,extended 500 mg PO HS PCOS 12/29/24 03/04/25 History release 24 hr New Prescriptions to Start Prescriptions: Allergies Allergy/AdvReac Type Severity Reaction Status Date / Time cortisone (CORTISONE) Allergy Mild Unknown Verified 03/04/25 12:50 allergy reaction Penicillins (PENICILLINS) Allergy Mild Unknown Verified 03/04/25 12:50 allergy reaction ibuprofen (From Advil) Allergy Unknown Verified 03/04/25 12:50 allergy reaction Exam Data for Last 24 hours Vital signs and Labs for Last 24 Hours: Temp Pulse Resp BP Pulse Ox O2 Del Method 96.1 F L 76 18 137/94 H 98 Room Air 03/04/25 13:02 03/04/25 13:02 03/04/25 13:02 03/04/25 13:02 03/04/25 13:02 03/04/25 13:02 Laboratory Results - last 24 hr 03/04/25 13:00: Urine HCG, Qual Negative I & O for Last 24 hours: Intake & Output 03/01/25 03/02/25 03/03/25 03/04/25 23:59 23:59 23:59 23:59 Weight 258 lb *Routine HEENT Exam Head: Present normocephalic Eye: Present EOMI and PERRL ENT: Present mucous membranes moist *Routine Neck Exam Neck: Present supple *Routine Respiratory Exam Respiratory: Present CTA bilaterally *Routine Cardiovascular Exam Cardiovascular: Present RRR *Routine Abdominal Exam Abdominal: Present soft and normoactive bowel sounds; Absent tenderness *Routine Rectal Exam Rectal:: deferred *Routine Genitalia Exam Genitalia:: deferred *Routine Extremities Exam Extremities: Absent cyanosis, clubbing or edema *Routine Skin Exam Skin: Present warm; Absent rash *Routine Neurological Exam Neurological: Present alert and oriented X3 Assessment and Plan *Assessment and plan (1) Heartburn: Status: Acute Category: Medical Code(s): R12 - Heartburn (2) Acid reflux: Status: Acute Category: Medical Code(s): K21.9 - Gastro-esophageal reflux disease without esophagitis (3) Early satiety: Status: Acute Category: Medical Code(s): R68.81 - Early satiety (4) Nausea & vomiting: Status: Acute Category: Medical Code(s): R11.2 - Nausea with vomiting, unspecified (5) Bloating: Status: Acute Category: Medical Code(s): R14.0 - Abdominal distension (gaseous) (6) Dysphagia: Status: Acute Category: Medical Code(s): R13.10 - Dysphagia, unspecified (7) Belching: Status: Acute Category: Medical Code(s): R14.2 - Eructation (8) Epigastric pain: Status: Acute Category: Medical Code(s): R10.13 - Epigastric pain (9) Dyspepsia: Status: Acute Category: Medical Code(s): R10.13 - Epigastric pain Plan A/P: 1. Epigastric pain/dyspepsia, heartburn, reflux, nausea, vomiting, bloating, belching, fullness and dysphagia is the preprocedural diagnosis. The patient will be anesthetized/sedated using MAC sedation. The patient has been seen and examined. Cardiac and lung assessment prior to the examination is stable. Proceed with planned diagnostic EGD.
--- NOTE | 2025-03-04 13:58 | P.PNANES_ITS ---
[facility] Disclaimer: The information contained in this section may have been updated after the patient was seen, as this information can be updated by other users. 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 delivery delivered Cholecystectomy planned PCOS (polycystic ovarian syndrome) Gastroparesis Thyroid disease Surgical History H/O thyroidectomy History of surgery on arm Family History Other No significant family history Social History Smoking Status: Never smoker alcohol intake: never substance use type: denies use current occupational status: unemployed Travel in the last 8 weeks?: None household members: spouse and children housing: house current occupational exposures/hazards: No Have you lived/traveled outside US in past 30 days?: No Contact w/someone who lives/traveled outside US past 30 days?: No Exposure to someone with infectious disease in past 14 days?: No Do you have a fever (greater than 100.4 F or 38 C)?: No Have you tested positive for COVID-19?: No Exposed to someone with COVID-19 in past 14 days?: No Do you have a sore throat?: No Do you have a cough?: No Do you have any weakness?: No Do you have any diarrhea?: No Are you experiencing any unusual bleeding?: No Do you have any muscle aches/pain?: No Do you have any abdominal pain?: No Are you experiencing loss of taste or smell?: No [facility] Anesthesia Checklist Patient Identification Patient Identification: Arm Band and Verbal (Name & ) Structural Data Admitted From: Home Planned Operative Procedure/s: EGD Consent for Planned Operative Procedure(s) Verified: Yes Verified Documents: Surgical Consent and History and Physical NPO Status Verified Time NPO: 00:00 Additional verifications Anesthesia Reactions: No Previous Colonoscopy: Yes Airway Assessment Mallampati Score:: Class II Dentition: Good Dentition Neurological Assessment Level of Consciousness: Awake, Alert and Appropriate Hx Seizures: No Numbness or tingling in extremities: No Anesthesia Plan Anesthesia Risk discussed: Yes Anesthesia Plan: Verified ASA Class: II Anesthesia Type: MAC
--- NOTE | 2025-03-04 14:05 | P.PCN_ITS ---
[facility] Procedure Note Date: 03/04/25 Time: 14:13 Procedure Note:: Upper Endoscopy Procedure Report: Esophagogastroduodenoscopy with cold biopsies and TTS balloon dilation Endoscopost: Ruddy Houston II, MD Referring Physician: JOSUE Leo Date of Procedure: March 04, 2025 Equipment: Olympus GIF 190 standard upper endoscope Sedation: MAC sedation Indications: Mrs. Crockett is a 34-year-old female with longstanding dyspepsia, heartburn, reflux, nausea and vomiting. She reports epigastric abdominal pain postprandially with lots of bloating, belching and gassiness. She did have an upper endoscopy in 2020 and had specificity of the esophagus (Dameon Deng M.D.). The patient did have an upper GI with small bowel follow-through that showed a small hiatal hernia and possible Schatzki's ring. Her gastric emptying study was normal at 78 minutes. She does get vagal symptoms with diaphoresis, nausea and exhaustion with lightheadedness. She failed Pepcid and famotidine. She was on Reglan for 3 months but had side effects from this. She now takes pantoprazole often 3 times daily. She also uses Pepto-Bismol twice daily. She had been diagnosed with gastroparesis. She has had prior cholecystectomy and has some chronic diarrhea. She has some intermittent dysphagia. EGD is warranted for further evaluation. Procedure: Prior to the procedure, a history and physical exam was performed, and patient's medications and allergies were reviewed. The risks, benefits and alternatives of the sedation and procedure were discussed with the patient. All questions were answered and informed consent was obtained. The patient was brought to the procedure room. Patient identification and proposed procedure were verified by the physician and the nurse. The patient was placed in a left lateral decubitus position and the scope was passed under direct vision. Throughout the procedure, the patient's blood pressure, pulse, and oxygen saturations were monitored continuously. The upper GI endoscopy was accomplished without difficulty. The patient tolerated the procedure well. Findings: The scope was passed directly into the upper esophagus and advanced to the fourth portion of duodenum and proximal jejunum. A cold biopsy was taken from the proximal jejunum for the disaccharidase assay. The proximal jejunum, post bulbar duodenum, ampulla and duodenal bulb were normal with normal mucosa and conniventes. The scope was withdrawn through a normal duodenal bulb and pylorus into the stomach. There was bile reflux with very mild linear antral gastropathy. The body and fundus of the stomach were normal. Cold biopsies were taken from the antrum. Upon retroflexion there was a very small sliding 1 to 2 cm hiatal hernia. The scope was then withdrawn into the esophagus. There was no evidence of reflux esophagitis or Harvey's. Biopsies were taken at the GE junction. There was a distal esophageal ring/Schatzki's ring. The original diameter of the ring was about 17 mm and this was dilated to 20 mm with a TTS hydrostatic balloon. There was no corrugation or furling. There were no inlet patches. There were tertiary contractions and evidence of mild to moderate esophageal dysmotility. The remainder of the esophageal mucosa was normal. Impression: 1. Nonerosive GERD with mild to moderate esophageal dysmotility and very small sliding 1 to 2 cm hiatal hernia 2. Schatzki's ring dilated to 20 mm (from diameter of 17 mm) 3. Bile reflux with very mild linear reactive gastropathy of antrum Plan: I will follow-up the biopsies and disaccharidase assay. We will discuss additional treatment options for her functional dyspepsia and functional GERD.
[2025-03-04 14:16] VITALS: BP 113/76; PULSE 69; RESP 18; TEMP 36.2; O2SAT 98
[2025-03-04 14:26] VITALS: BP 113/74; PULSE 67; RESP 18; TEMP 36.2; O2SAT 95
[2025-03-04 14:36] VITALS: BP 116/76; PULSE 68; RESP 17; TEMP 36.2; O2SAT 98
[2025-03-04 14:46] VITALS: BP 120/82; PULSE 65; RESP 17; TEMP 36.2; O2SAT 95
[2025-03-09 14:12] LABS: Interpretation Notes (.); Lactase 27.89 (>/= 14.0); Maltase 265.83 (>/= 110.0); Palatinase 17.29 (>/= 8.5); Reference Notes (.); Sucrase 63.92 (>/= 25.0)
== END 2025-03-04 15:10 | disposition home or self-care (01) ==
PROVIDERS: PCP Nurse Practitioner Family; Visit Provider Internal Medicine Gastroenterology
PROC: 0DJ08ZZ Inspection of Upper Intestinal Tract, Via Natural or Artificial Opening Endoscopic (ICD-10-PCS; CPT 43239; principal; 2025-03-04 14:00)
DX: K21.9 Gastro-esophageal reflux disease without esophagitis (principal); K22.2 Esophageal obstruction; K31.9 Disease of stomach and duodenum, unspecified; E07.9 Disorder of thyroid, unspecified; Z88.0 Allergy status to penicillin; Z88.6 Allergy status to analgesic agent; Z79.84 Long term (current) use of oral hypoglycemic drugs; Z79.890 Hormone replacement therapy; Z79.899 Other long term (current) drug therapy
CPT/HCPCS: 43239; 43249; 81025; 82657; C1726; J2003; J2704